=== PATIENT | female | born 1960 | race American Indian/Alaskan Native ===

== ENCOUNTER 2017-05-27 09:11 | Day surgery (SDC) | payer OTHER ==
[~2017-05-27 09:11] MED LIST: WATER FOR IRRIG STERILE ONE; XYLOCAINE MPF 2% ONE
[2017-05-27] MEDS ORDERED: NACL 0.9% 1000 ML 1,000 ML IV SCH (10:00)
[2017-05-27] MEDS ORDERED: DIPRIVAN 10 MG/ML IV ONE ×6 (13:22→14:34)
--- NOTE | 2017-05-27 13:24 | Anesthesia Consultation ---
Anesthesia Consult and Med Hx Date of service: 05/27/17 - Airway Anesthetic Teeth Evaluation: Good ROM Head & Neck: Adequate Mental/Hyoid Distance: Adequate Mallampati Class: Class II Intubation Access Assessment: Probably Good - Pulmonary Exam CTA: Yes - Cardiac Exam Cardiac Exam: RRR - Pre-Operative Health Status Proposed Anesthetic Plan: General - Cardiovascular System Hx Hypertension: Yes - Endocrine Hx Non-Insulin Dependent Diabetes: Yes Hx Hypothyroidism: Yes - Other Systems Hx Obesity: Yes
--- NOTE | 2017-05-27 13:25 | Anesthesia Day of Surgery ---
Anesthesia Day of Surgery - Day of Surgery Patient Examined: Yes Patient H&P Reviewed: Yes Patient is NPO: Yes
--- NOTE | 2017-05-27 14:40 | Operative Report ---
Operative Report Operative Report: Date of procedure: 05/27/2017 Procedure: Colonoscopy with Endoscopic Mucosal Resection, Multiple polyp Ablations, Multiple Hot biopsy polypectomies, Multiple Cold Biopsies, . Attending physician: Lalo Lyons MD Video Effects Editor: Lalo Lyons MD Indication: Patient is a 57-year-old female who presents for screening colonoscopy. A colonoscopy service to evaluate patient for colorectal cancer screening.. Consent: Informed consent was obtained after advising the patient and family regarding nature of this procedure, its indications, potential benefits as well as possible complications including but not limited to bleeding perforation and adverse reaction to medication, infection as well as other cardiopulmonary complications. An informed written and verbal consent was then obtained after due opportunity was provided for questions and answers. Monitoring: Patient was monitored continuously with pulse oximetry and electrocardiographic recordings as well as blood pressure recordings. Vital signs remained stable throughout this procedure with no untoward events. Preoperative assessment: Patient was assessed immediately prior to this procedure for capacity to tolerate monitored anesthesia care and moderate sedation as well as general anesthesia. Patient's ASA classification is 2, Mallampati class is 2, Hyomental distance is 3. Instrument: Risk I/On video colonoscope Medications: Propofol given intravenously in divided doses. For details please refer to anesthesia records. Description of procedure: Patient was placed in the left lateral decubitus position after achieving sedation, a digital rectal examination was performed following which the colonoscope was introduced into the anal verge and advanced to the cecum which was identified by the ileocecal valve, the appendiceal orifice, as well as by the cecal strap and direct transillumination. The colonoscope was subsequently withdrawn with careful inspection of all mucosal surfaces. Patient tolerated this procedure well and was subsequently taken to the recovery room. The following findings were noted. Findings: The colon was mildly tortuous. The preparation was suboptimal with retained thick liquid stool in all sections of the colon. Patient had multiple diminutive flat polyps in the rectum. 14 of these polyps were removed by hot biopsy polypectomy and cold biopsy polypectomy multiple diminutive polyps were also ablated in the rectum. In the sigmoid colon, 4 polyps were ablated. These were diminutive and flat. 2 additional polyps were removed by hot biopsy polypectomy that measured approximately 5 mm each. The descending colon was normal. In the transverse colon, patient had 4 diminutive flat polyps there were ablated. There were 2 additional polyps there were removed by hot biopsy polypectomy. The ascending colon was normal. In the cecum, patient had a broad -based 1.5-2 cm polyp that was flat. This was elevated with submucosal injection with Eleview. Endoscopic mucosal resection of this polyp was then performed. Subsequently, the defect was closed with a Hemoclip. There were 2 diminutive flat polyps in the cecum which were ablated. Patient also had diverticulosis involving the sigmoid and the descending colon. On the retroflex view at the anal verge, patient had internal hemorrhoids. Impression: Multiple rectal polyps status post hot biopsy polypectomy and cold biopsy polypectomy and ablation. Multiple sigmoid colon polyp status post ablation and hot biopsy polypectomy. Multiple transverse colon polyp status post ablation and hot biopsy polypectomy. Cecal polyp status post endoscopic mucosal resection with submucosal injection of eleview, subsequent snare polypectomy, and closure of defect with a Hemoclip. Internal hemorrhoids. Plan: Follow pathology report. Because patient had multiple colon polyps and the preparation was suboptimal, will repeat colonoscopy in 6 months. Encourage high-fiber diet.
--- NOTE | 2017-05-27 14:41 | Discharge Summary ---
Short Stay Discharge Plan Activity: advance as tolerated, no driving until cleared by PCP Weight Bearing Status: Weight Bear as Tolerated Diet: regular Additional Instructions: Post Sedation D/C Instructions When you return home you may resume your regular diet unless otherwise directed. -Go directly home from the hospital and rest quietly. You may resume normal activities tomorrow. -Do NOT drive, return to work, operate any machinery or make any important personal or business decisions today. -Do NOT drink any alcohol or take nerve or sleeping drugs. They add to the effects of the medicine still present in your body. Follow up with Dr. Lyons in 2 weeks to obtain pathology results and treatment plan. Follow up with: BISI OROZCO MD [Primary Care Provider] - 7 Days
[2017-05-27 14:45] VITALS: BP 151/69
== END 2017-05-27 09:12 | disposition home or self-care (01) ==
LOC: GIO 09:11
PROVIDERS: ATTEND Internal Medicine Gastroenterology
DX: K63.5 Polyp of colon (principal); D12.8 Benign neoplasm of rectum; J45.909 Unspecified asthma, uncomplicated; I10 Essential (primary) hypertension; E11.9 Type 2 diabetes mellitus without complications; E03.9 Hypothyroidism, unspecified; E66.9 Obesity, unspecified
CPT/HCPCS: 45380; 45381; 45384; 45388; 82962; 88305; J2704

== ENCOUNTER 2018-02-10 12:38 | Day surgery (SDC) | payer OTHER ==
[2018-02-10] MEDS ORDERED: NACL 0.9% 1000 ML 1,000 ML IV SCH (14:00)
--- NOTE | 2018-02-10 14:59 | Anesthesia Consultation ---
Anesthesia Consult and Med Hx Date of service: 02/10/18 - Airway Anesthetic Teeth Evaluation: Dentures ROM Head & Neck: Adequate Mental/Hyoid Distance: Adequate Mallampati Class: Class II Intubation Access Assessment: Probably Good - Pulmonary Exam CTA: Yes - Cardiac Exam Cardiac Exam: RRR - Pre-Operative Health Status ASA Pre-Surgery Classification: ASA3 Proposed Anesthetic Plan: MAC - Cardiovascular System Hx Hypertension: Yes - Endocrine Hx Non-Insulin Dependent Diabetes: Yes Hx Hypothyroidism: Yes - Other Systems Hx Obesity: Yes
--- NOTE | 2018-02-10 14:59 | Anesthesia Day of Surgery ---
Anesthesia Day of Surgery - Day of Surgery Patient Examined: Yes Patient H&P Reviewed: Yes Patient is NPO: Yes
[2018-02-10] MEDS ORDERED: DIPRIVAN 10 MG/ML IV ONE ×3 (15:04→15:25)
[2018-02-10] MEDS ORDERED: WATER FOR IRRIG STERILE IR ONE ×2 (15:25→20:07)
--- NOTE | 2018-02-10 15:39 | Discharge Summary ---
Short Stay Discharge Plan Activity: advance as tolerated Weight Bearing Status: Weight Bear as Tolerated Diet: regular Follow up with: BISI OROZCO MD [Primary Care Provider] - 7 Days
--- NOTE | 2018-02-10 15:39 | Operative Report ---
Operative Report Operative Report: Date of procedure: 02/10/2018 Procedure: Colonoscopy with Multiple Hot Biopsy Polypectomies, Polyp ablation. Attending physician: Lalo Lyons MD Process Control Specialist: Lalo Lyons MD Indication: Patient is a 57-year-old female who presents for surveillance colonoscopy for history of colon polyps. This colonoscopy serves to evaluate patient so that treatment may be directed based on the findings. Consent: Informed consent was obtained after advising the patient and family regarding nature of this procedure, its indications, potential benefits as well as possible complications including but not limited to bleeding perforation and adverse reaction to medication, infection as well as other cardiopulmonary complications. An informed written and verbal consent was then obtained after due opportunity was provided for questions and answers. Monitoring: Patient was monitored continuously with pulse oximetry and electrocardiographic recordings as well as blood pressure recordings. Vital signs remained stable throughout this procedure with no untoward events. Preoperative assessment: Patient was assessed immediately prior to this procedure for capacity to tolerate monitored anesthesia care and moderate sedation as well as general anesthesia. Patient's ASA classification is 2, Mallampati class is 2, Hyomental distance is 3. Instrument: [employer] video colonoscope Medications: Propofol given intravenously in divided doses. For details please refer to anesthesia records. Description of procedure: Patient was placed in the left lateral decubitus position after achieving sedation, a digital rectal examination was performed following which the colonoscope was introduced into the anal verge and advanced to the cecum which was identified by the cecal valve, the appendiceal orifice, as well as by the cecal strap and direct transillumination. The colonoscope was subsequently withdrawn with careful inspection of all mucosal surfaces. Patient tolerated this procedure well and was subsequently taken to the recovery room. The following findings were noted. Findings: Patient had 6 diminutive sessile polyps in the sigmoid colon which measured 4-5 mm. The polyps were removed by hot biopsy polypectomy and retrieved. Patient had a transverse colon polyp measuring approximately 4-5 mm which was removed by hot biopsy polypectomy and retrieved. Patient had 2 diminutive polyps in the rectum, which were ablated. There were scattered diverticula in the sigmoid descending and ascending colon. Patient had residual stool in sections of the colon. On the retroflex view at the anal verge, patient had internal hemorrhoids. Impression: Diminutive sigmoid colon and transverse colon polyps status post multiple hot biopsy polypectomies. Diverticula disease of the colon. Retained stool. Internal hemorrhoids. Plan: Follow pathology report. High-fiber diet. Repeat colonoscopy in 1 year due to retained stool and multiple polyps.
[2018-02-10 16:15] VITALS: BP 156/86
[2018-02-10] MEDS ORDERED: WATER FOR IRRIG STERILE ONE (20:07)
== END 2018-02-10 12:39 | disposition home or self-care (01) ==
LOC: GIO 12:38
PROVIDERS: ATTEND Internal Medicine Gastroenterology
DX: K63.5 Polyp of colon (principal); K57.30 Diverticulosis of large intestine without perforation or abscess without bleeding; K64.8 Other hemorrhoids; K59.00 Constipation, unspecified; E78.00 Pure hypercholesterolemia, unspecified; M19.90 Unspecified osteoarthritis, unspecified site; E11.9 Type 2 diabetes mellitus without complications; E89.0 Postprocedural hypothyroidism; J45.909 Unspecified asthma, uncomplicated; I10 Essential (primary) hypertension; E66.9 Obesity, unspecified; Z68.42 Body mass index [BMI] 45.0-49.9, adult; Z79.84 Long term (current) use of oral hypoglycemic drugs; Z79.899 Other long term (current) drug therapy; Z86.010 Personal history of colon polyps; Z90.710 Acquired absence of both cervix and uterus
CPT/HCPCS: 45384; 45388; 82962; 88305; J2704; J7030